=== PATIENT | female | born 1990 | race African-American/Black ===

== ENCOUNTER 2017-01-13 13:52 | Emergency (ER) | payer OTHER ==
[~2017-01-13] VITALS: Ht 167.6 cm; Wt 54.5 kg
[~2017-01-13 13:52] MED LIST: IBUP800T23 PO; METH750T2 PO
[2017-01-13 14:04] VITALS: BP 106/63; PULSE 80; RESP 16; TEMP 98.6; O2SAT 100
--- NOTE | 2017-01-13 14:11 | PD ---
HPI Chief Complaint: ba Time Seen by Provider: 14:11 Travel History International Travel<30 days: No Contact w/Intl Traveler<30days: No Traveled to known affect area: No History of Present Illness HPI 26 year-old female is no significant medical history presents to the emergency department a Guido act for psychiatric evaluation. Patient states that she said things that she did not mean because she was upset. She states that she wants to go home and does not belong here in the emergency department. She did say that she wanted to commit suicide by jumping in front of the motor vehicle, but she states this was because she was angry. She denies any suicidal or homicidal ideations. Denies any psychiatric or medical history. Patient does report marijuana and tobacco cigarette smoking. Last menstrual cycle was December 29, 2016. She has no other symptoms to report. PFSH Past Medical History Medical History: Denies Significant Hx Diminished Hearing: No : 0 Social History Alcohol Use: No (DENIES) Tobacco Use: Yes (1PPD) Substance Use: Yes (ELOY ) Allergies-Medications (Allergen,Severity, Reaction): Coded Allergies: No Known Allergies (Verified , 01/13/17) Reported Meds & Prescriptions Reported Meds & Active Scripts Active No Active Prescriptions or Reported Medications Review of Systems Except as stated in HPI: all other systems reviewed are Neg Physical Exam Narrative GENERAL: Well-nourished female patient, visibly agitated but in no acute distress SKIN: Focused skin assessment warm/dry. HEAD: Atraumatic. Normocephalic. EYES: Pupils equal and round. No scleral icterus. No injection or drainage. ENT: No nasal bleeding or discharge. Mucous membranes pink and moist. NECK: Trachea midline. No JVD. CARDIOVASCULAR: Regular rate and rhythm. No murmur appreciated. RESPIRATORY: No accessory muscle use. Clear to auscultation. Breath sounds equal bilaterally. GASTROINTESTINAL: Abdomen soft, non-tender, nondistended. Hepatic and splenic margins not palpable. MUSCULOSKELETAL: No obvious deformities. No clubbing. No cyanosis. No edema. NEUROLOGICAL: Awake and alert. No obvious cranial nerve deficits. Motor grossly within normal limits. Normal speech. Data Data Last Documented VS Vital Signs Date Time Temp Pulse Resp B/P Pulse Ox O2 Delivery O2 Flow Rate FiO2 01/13/17 16:44 65 18 109/59 98 01/13/17 14:04 98.6 Orders Complete Blood Count With Diff (01/13/17 14:11) Basic Metabolic Panel (Bmp) (01/13/17 14:11) Ed Urine Pregnancytest Poc (01/13/17 14:11) Psych Screen (01/13/17 14:11) Drug Screen, Random Urine (01/13/17 14:11) Alcohol (Ethanol) (01/13/17 14:11) Diet Regular Basic (01/13/17 Dinner) Diet Regular Basic (01/13/17 Lunch) Labs Laboratory Tests Test 01/13/17 01/13/17 14:35 16:30 White Blood Count 5.8 TH/MM3 Red Blood Count 3.97 MIL/MM3 Hemoglobin 12.0 GM/DL Hematocrit 36.0 % Mean Corpuscular Volume 90.7 FL Mean Corpuscular Hemoglobin 30.3 PG Mean Corpuscular Hemoglobin 33.4 % Concent Red Cell Distribution Width 14.8 % Platelet Count 173 TH/MM3 Mean Platelet Volume 10.0 FL Neutrophils (%) (Auto) 48.7 % Lymphocytes (%) (Auto) 33.2 % Monocytes (%) (Auto) 12.5 % Eosinophils (%) (Auto) 5.1 % Basophils (%) (Auto) 0.5 % Neutrophils # (Auto) 2.8 TH/MM3 Lymphocytes # (Auto) 1.9 TH/MM3 Monocytes # (Auto) 0.7 TH/MM3 Eosinophils # (Auto) 0.3 TH/MM3 Basophils # (Auto) 0.0 TH/MM3 CBC Comment DIFF FINAL Differential Comment Sodium Level 144 MEQ/L Potassium Level 3.5 MEQ/L Chloride Level 110 MEQ/L Carbon Dioxide Level 27.4 MEQ/L Anion Gap 7 MEQ/L Blood Urea Nitrogen 12 MG/DL Creatinine 0.86 MG/DL Estimat Glomerular Filtration 96 ML/MIN Rate Random Glucose 69 MG/DL Calcium Level 8.9 MG/DL Ethyl Alcohol Level LESS THAN 3 MG/DL Urine Opiates Screen NEG Urine Barbiturates Screen NEG Urine Amphetamines Screen NEG Urine Benzodiazepines Screen NEG Urine Cocaine Screen NEG Urine Cannabinoids Screen POS MDM Medical Decision Making Medical Screen Exam Complete: Yes Emergency Medical Condition: Yes Medical Record Reviewed: Yes Differential Diagnosis Mood disorder versus personality disorder versus adjustment reaction disorder Narrative Course 26-year-old female presents to the emergency department a Guido act for psychiatric evaluation. Patient appears without distress. CBC and BMP are without acute concern. Toxicology is positive for cannabinoids. Patient is medically cleared to undergo psychiatric screening for further evaluation and disposition. Mental health screening discussed with the patient. Psychiatric screen ordered. Diagnosis Primary Impression: Adjustment reaction Qualified Code: F43.25 - Adjustment disorder with mixed disturbance of emotions and conduct Scripts No Active Prescriptions or Reported Meds Condition: Daphne Crandall January 13, 2017 14:11
[2017-01-13 15:03] LABS: AUTOMATED NEUTROPHIL # 2.8 TH/MM3 (1.8-7.7); BASOPHIL % 0.5 % (0.0-2.0); EOSINOPHIL # 0.3 TH/MM3 (0-0.4); EOSINOPHIL % 5.1 % (0.0-4.0); HEMO FLAGS DIFF FINAL; LYMPH % 33.2 % (9.0-44.0); LYMPHOCYTE # 1.9 TH/MM3 (1.0-4.8); MEAN CELL VOLUME 90.7 FL (80.0-100.0); MEAN CORPUSCULAR HEMOGLOBIN 30.3 PG (27.0-34.0); MEAN CORPUSCULAR HGB CONC 33.4 % (32.0-36.0); MONO % 12.5 % (0.0-8.0); NEUT % 48.7 % (16.0-70.0); PLATELET COUNT 173 TH/MM3 (150-450); RED BLOOD COUNT 3.97 MIL/MM3 (4.00-5.30); RED CELL DISTRIBUTION WIDTH 14.8 % (11.6-17.2); WHITE BLOOD COUNT 5.8 TH/MM3 (4.0-11.0)
[2017-01-13 15:24] LABS: ANION GAP 7 MEQ/L (5-15); BICARBONATE 27.4 MEQ/L (21.0-32.0); BLOOD UREA NITROGEN 12 MG/DL (7-18); CHLORIDE 110 MEQ/L (98-107); GLOMERULAR FILTRATION RATE 96 ML/MIN (>89); POTASSIUM 3.5 MEQ/L (3.5-5.1); SODIUM (NA) 144 MEQ/L (136-145)
[2017-01-13 16:44] VITALS: BP 109/59; PULSE 65; RESP 18; O2SAT 98
[2017-01-13 17:19] LABS: AMPHETAMINE, URINE NEG (NEG); BARBITURATES, URINE NEG (NEG); COCAINE, URINE NEG (NEG)
[2017-01-14 02:26] VITALS: BP 101/91; PULSE 60; RESP 18; O2SAT 99
[2017-01-14 06:00] VITALS: BP 101/52; PULSE 65; RESP 17; O2SAT 97
[2017-01-14 08:26] VITALS: BP 101/52; PULSE 65; RESP 17; O2SAT 97
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
== END 2017-01-14 08:45 | disposition home or self-care (01) ==
LOC: NEPD 13:52 → NEPJ 01-14 08:45
DX: F43.20 Adjustment disorder, unspecified (principal); F43.24 Adjustment disorder with disturbance of conduct; F17.210 Nicotine dependence, cigarettes, uncomplicated; F12.90 Cannabis use, unspecified, uncomplicated
CPT/HCPCS: 80048; 80307; 84703; 85025; 99284

== ENCOUNTER 2017-02-19 16:38 | Emergency (ER) | payer SELFPAY ==
[~2017-02-19] VITALS: Ht 167.6 cm; Wt 55.0 kg
[2017-02-19 16:41] VITALS: BP 95/70; PULSE 88; RESP 20; TEMP 98.7; O2SAT 95
--- NOTE | 2017-02-19 17:19 | PD ---
Physical Exam Date Seen by Provider: Feb 19, 2017 Time Seen by Provider: 17:16 Data Data Last Documented VS Vital Signs Date Time Temp Pulse Resp B/P Pulse Ox O2 Delivery O2 Flow Rate FiO2 02/19/17 16:41 98.7 88 20 95/70 95 Room Air [facility] Supervised Visit with [place]: No Narrative Course 26 YO F with complaint of CP under the right breast radiating to the back, SOB since last night. Endorses chills, denies fever. Endorses hx of asthma. Current smoker. Patient seen in triage. Vitals reviewed. Awaiting bed placement. Scripts No Active Prescriptions or Reported Meds Charu Singletary Feb 19, 2017 17:19
[2017-02-19 17:23] VITALS: BP 93/61
== END 2017-02-19 18:36 | disposition left against medical advice (07) ==
LOC: NED 16:38
DX: R68.83 Chills (without fever) (principal)
CPT/HCPCS: 99281